=== PATIENT | female | born 2005 | race Caucasian/White ===

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

== ENCOUNTER 2023-05-15 18:37 | Emergency (ER) | payer OTHER, SELFPAY ==
[2023-05-15 18:39] VITALS: BP 150/95; PULSE 117; RESP 18; TEMP 36.4; O2SAT 98; BMI 33.9
--- NOTE | 2023-05-15 22:06 | EX.ED.DYSGE1 ---
HPI History of Present Illness Chief Complaint: Syncope [facility] Medical History Influenza A Knee problem Home Medications ondansetron 4 mg disintegrating tablet 4 mg PO Q8H PRN PRN Nausea #10 tabs 05/15/23 [Rx Last Taken Unknown] Allergy/AdvReac Type Severity Reaction Status Date / Time No Known Allergies Allergy Verified 05/15/23 21:13 Family History Father Diabetes Grandmother Breast cancer Unknown Hypertension Social History current occupation: Student- [employer]- [employer] Smoking Status: Never smoker alcohol intake: never substance use type: does not use what type of physical activity do you participate in: other frequency: 3-4 times per week seatbelt use: always do you feel safe at home: Yes EXAM Physical Exam Const Vital Signs: 05/15/23 18:39 05/15/23 21:13 05/15/23 23:27 Temperature 97.5 F L Temperature Source Temporal Pulse Rate 117 H 100 Respiratory Rate 18 18 Respiratory Effort Normal Non-Labored Respiratory Pattern Normal Blood Pressure 150/95 H 102/52 L Blood Pressure Mean 113 68 Pulse Ox 98 100 Oxygen Delivery Method Room Air Room Air MDM MDM MDM Narrative Medical decision making narrative: HISTORY OF PRESENT ILLNESS: 17-year-old female here with concern for losing consciousness. Notes she is having diarrhea all day, vomiting mutiple times. She further states she was on the toilet when she was having episode of diarrhea and vomiting and she lost consciousness briefly. Denies hitting her head or any trauma. Denies family history of early cardiac . Denies any personal history of any cardiac etiology. No history of diabetes, hypertension, hyperlipidemia. Denies headache, chest pain, palpitations shortness of breath, abdominal pain prior to losing consciousness. Notes she felt dizzy, warm, and nauseous prior to passing out. The patient denies recent surgery in the last 4 weeks or immobilization in the last 3 days, denies previous diagnosis of DVT or PE, hemoptysis, unilateral leg swelling or malignancy with treatment the last 6 months or palliative. No estrogen use noted. Patient denies sudden onset of pain, no tearing sensation, no migratory symptoms, no new numbness, weakness or loss of sensation. Patient denies family history or personal history of Connective tissue disorders (Marfan's Syndrome, Sai Danlos etc) REVIEW OF SYSTEMS: Pertinent positives: Syncope, nausea vomiting, diarrhea Pertinent negatives: Focal weakness, headache, chest pain, shortness of breath, vaginal bleeding, abdominal pain PHYSICAL EXAM: Nursing triage notes reviewed, Vital signs reviewed Constitutional: please see mdm HENT: MMM Eyes: Pupils equal round and reactive to light, Extraocular muscles intact Neck: No stridor, no JVD, full neck ROM Lungs: Clear to auscultation, No wheezing or rales. No increased work of breathing, no conversational dyspnea, no accessory muscle use, no nasal flaring. No respiratory distress noted Heart: Regular rate and rhythm, No murmurs, No rubs and No gallops, 2+ distal pulses (radial, femoral, posterior tibial) in all extremities Abdomen: Soft, there is no tenderness, rigidity, rebound or guarding, no obvious peritoneal signs, no palpable pulsatile abdominal masses, no auscultated abdominal bruit : No CVAT Extremities: No edema Neuro: Alert and oriented x3, neuro exam at baseline, cranial nerves II through XII are intact. No pain with extraocular muscle movement. There is negative test of skew. 5 of 5 strength in upper and lower extremities in flexion extension. Intact sensation to light touch in upper and lower extremity dermatomes. No truncal or extremity ataxia. No dysdiadochokinesia. Normal gait. 2+ reflexes in upper and lower extremities. No meningeal signs. Negative Babinski. NIH of 0. Skin: No rash or lesions noted MEDICAL DECISION MAKING: Chief Complaint: Syncope, nausea vomiting External records reviewed: No recent cardiac catheterizations, echocardiograms noted in the chart Factors affecting care: none Social determinants of health: none History obtained from others: Patient's mother Consults: none [facility] Narrative: Patient was initially tachycardic, otherwise hemodynamically stable, afebrile and nontoxic-appearing. Exam without focal cardiopulmonary maladies, no focal deficits. No signs of trauma. I considered the following differential diagnosis: Arrhythmia, anemia, dehydration, drug disturbance, ACS, PE, aortic dissection, subarachnoid hemorrhage, ectopic I obtained a broad lab and imaging workup to further elucidate the etiology patient complaint. His history is most consistent with likely vasovagal event given nausea, vomiting, diarrhea. Historical factors such as headache to suggest subarachnoid hemorrhage. There is no abdominal pain to suggest AAA, aortic dissection or ectopic . Patient low risk Wells score and as such have a low suspicion for PE. ALL IMAGES (IF OBTAINED) HAVE BEEN PERSONALLY REVIEWED AND INTERPRETED BY MYSELF. EKG with normal sinus rhythm, normal axis, normal intervals, no STEMI, no WPW, ARVD or Brugada syndrome noted Urine test is negative CBC without leukocytosis, severe anemia, no thrombocytopenia. CMP without evidence of acute kidney injury, significant electrolyte abnormality, anion gap, no evidence hepatobiliary pathology. High-sensitivity troponin is negative, no evidence of myocardial ischemia The synthesis of the patient's history, physical exam, labs suggest no acute life or limb threatening etiology to explain her symptoms. Her presentation today is likely secondary to vasovagal syncope precipitated by nausea and vomiting. Patient was able to tolerate p.o. here in the emergency department appropriate discharge home with Zofran and strict return precautions. The patient and/or family, caregivers express understanding. The patient and/or family, caregivers agrees with the plan. Shared decision making: I will have a discussion with the patient and or visitors regarding risk/benefits of further testing or admission. They will be made aware of of the risk/benefits inherent in this decision they will be given the opportunity to voice understanding. Total critical care time today provided was at least 0 [] minutes. This excludes separately billable procedures. Critical care time (if documented) is secondary to the patient having high probability of clinically significant/life threatening deterioration in the patient's condition which required my urgent intervention. Impression: 1. Vasovagal syncope 2. Nausea vomiting 3. Dehydration Dispo: Discharge Lab Data Labs: Laboratory Results - last 24 hr 05/15/23 05/15/23 22:23 22:29 WBC 9.3 RBC 4.54 Hgb 13.4 Hct 40.7 MCV 89.6 MCH 29.5 MCHC 32.9 RDW Std Deviation 38.8 RDW Coeff of Sarah 11.9 Plt Count 243 MPV 10.2 Immature Gran % (Auto) 0.300 Neut % (Auto) 84.5 H Lymph % (Auto) 9.8 L King % (Auto) 4.8 Eos % (Auto) 0.5 Baso % (Auto) 0.1 Absolute Neuts (auto) 7.8 H Absolute Lymphs (auto) 0.91 Nucleated RBC % 0 Sodium 138 Potassium 3.6 Chloride 106 Carbon Dioxide 27.0 Anion Gap 5 BUN 10 Creatinine 0.79 Estim Creat Clear Calc 161.33 Est GFR (MDRD) Af Amer 121 Est GFR (MDRD) Non-Af 100 BUN/Creatinine Ratio 12.7 Glucose 96 Calcium 9.3 Total Bilirubin 0.50 AST 10 L ALT 31 Alkaline Phosphatase 85 Troponin I High Sens < 3 L Total Protein 7.4 Albumin 3.4 Globulin 4.0 Albumin/Globulin Ratio 0.8 L Lipase 11 L Urine Test Negative Discharge Plan Triage Chief Complaint: Syncope ED Provider: Chepe Eaton Dx/Rx/DC Orders Clinical Impression: Vaso-vagal reaction Instructions: ED Fainting, Vagal Reaction Prescriptions: New ondansetron 4 mg tablet,disintegrating 4 mg PO Q8H PRN PRN (Reason: Nausea) Qty: 10 0RF Stand Alone Forms: ED Work / School Excuse Primary Care Provider: Brandon Aragon Referrals: Brandon Aragon MD [Primary Care Provider] - Activity Restrictions/Additional Instructions: Thank you for trusting us with your care today! Your presentation today is likely secondary to vasovagal syncope or reflex loss of consciousness. Please take Tylenol (2 pills, 650 mg), ibuprofen (2 pills, 400 mg) every 6 hours as needed for pain and fever control. Please take Zofran as needed for nausea or vomiting. Please drink plenty of fluids I recommend Pedialyte, body armor or Gatorade. Please return to the emergency department if your symptoms change or worsen. Please follow with your primary care physician for further outpatient evaluation and management. Disposition Disposition: Home, Self Care Discharge Date/Time: 05/15/23 23:45
[2023-05-15 22:35] LABS: Absolute Lymphocyte Count 0.91 X10^3/uL (0.83-4.51); Absolute Neutrophil Count 7.8 X10^3/uL (2.0-7.7); Basophil# 0.01 X10^3/uL; Basophil% 0.1 % (0-1); Eosinophil# 0.05 X10^3/uL; Eosinophils% 0.5 % (0-5); Hematocrit 40.7 % (37-47); Hemoglobin 13.4 g/dL (12.0-15.0); Lymphocyte # 0.91 X10^3/ul (0.83-4.51); Lymphocyte % 9.8 % (19-41); Mean Corp Hgb Conc 32.9 g/dL (32-36); Mean Corpuscular Hgb 29.5 pg (27.0-32.0); Mean Corpuscular Volume 89.6 fL (81-99); Mean Platelet Vol. 10.2 fl (6.2-12.0); Monocyte# 0.45 X10^3/uL; Monocyte% 4.8 % (0-10); NRBC Flagged by Analyzer 0 % (0-5); Neutrophil # 7.84 X10^3/uL (2.7-7.7); Neutrophil % 84.5 % (47-70); Platelet Count 243 K/mm3 (150-450); RBC Distribution Width CV 11.9 % (11.6-14.6); RBC Distribution Width SD 38.8 fl (35.1-43.9); Red Blood Count 4.54 M/mm3 (4.2-5.4); White Blood Count 9.3 K/mm3 (4.4-11.0)
[2023-05-15] MEDS: 0.9% Normal Saline (1000mL) 1,000 ML 999 ML IV (22:39)
[2023-05-15] MEDS: Ondansetron 4 MG/2 ML Vial IV (22:39)
[2023-05-15 22:42] LABS: Internal QC Validated? YES +Cl - CLEAR BKGD; Pregnancy, Urine Negative Negative
[2023-05-15 22:56] LABS: ALB/GLOB Ratio 0.8 RATIO (0.9-2.4); AST(SGOT) 10 U/L (15-37); Alanine Aminotransfer ALT/SGPT 31 U/L (13-56); Albumin, Serum 3.4 g/dL (3.2-5.0); Alkaline Phosphatase 85 U/L (45-117); Anion Gap 5 (5-15); BUN 10 mg/dL (7-18); BUN/Creat Ratio 12.7 RATIO (10-20); Calcium,Total 9.3 mg/dL (8.5-10.1); Chloride 106 mmol/L (98-107); Creatinine, Serum 0.79 mg/dL (0.55-1.02); EST Glomerular Filtration Rate 100 mL/min (>60); Est Glom Filt Rate - Afr Amer 121 mL/min (>60); Estimated Creatinine Clearance 161.33 ml/min; Glucose 96 mg/dL (74-106); Lipase 11 U/L (13-75); Potassium 3.6 mmol/L (3.5-5.1); Protein, Total 7.4 g/dL (6.4-8.2); Sodium Level 138 mmol/L (136-145); Troponin-I HS < 3 pg/mL (3.0-54.0)
[2023-05-15 23:27] VITALS: BP 102/52; PULSE 100; RESP 18; O2SAT 100
== END 2023-05-15 23:45 | disposition home or self-care (01) ==
PROVIDERS: Emergency Provider Emergency Medicine; PCP Family Medicine; Visit Provider Emergency Medicine
DX: R55 Syncope and collapse (principal); E86.0 Dehydration; R19.7 Diarrhea, unspecified; R11.2 Nausea with vomiting, unspecified
CPT/HCPCS: 80053; 81025; 83690; 84484; 85025; 93005; 96361; 96374; 99283; A4216; J2405

== ENCOUNTER → 2024-08-24 | Outpatient (CLI) | payer OTHER, SELFPAY | END | disposition home or self-care (01) | LOC: LABSPEC 16:20 | PROVIDERS: PCP Family Medicine; Referring Provider Nurse Practitioner Women's Health; Visit Provider Nurse Practitioner Women's Health | DX: Z11.3 Encounter for screening for infections with a predominantly sexual mode of transmission (principal) | CPT/HCPCS: 87491; 87591 ==